=== PATIENT | male | born 1945 | race Caucasian/White ===

== ENCOUNTER 2022-05-24 06:41 | Day surgery (SDC) | payer OTHER, MEDICARE ==
[~2022-05-24] VITALS: Ht 175.3 cm; Wt 90.7 kg
[~2022-05-24 06:41] MED LIST: AMLODIPINE BESY10 MG PO; CINNAMON500 M1 PO; DOXAZOSIN PO; LISINOPRIL40 MG PO; METFORMIN500 M2 PO; MULTI PO; PRADAXA150 M1 PO; PRAVASTATIN40 MG PO; SERTRALINE50 MG PO; TYLENOL500 MG PO
[2022-05-24 11:26] VITALS: BP 119/61
== END 2022-05-24 11:36 | disposition home or self-care (01) | DRG 470 ==
LOC: ORM 06:41
PROVIDERS: ATTEND Orthopaedic Surgery
PROC: 0SRB0JA Replacement of Left Hip Joint with Synthetic Substitute, Uncemented, Open Approach (ICD-10-PCS; principal; 2022-05-24)
DX: M16.12 Unilateral primary osteoarthritis, left hip (principal); I10 Essential (primary) hypertension; E11.9 Type 2 diabetes mellitus without complications; Z87.891 Personal history of nicotine dependence; Z79.84 Long term (current) use of oral hypoglycemic drugs
CPT/HCPCS: J0131